=== PATIENT | female | born 1985 | race Caucasian/White ===

== ENCOUNTER 2024-11-25 08:00 | Outpatient (RCR) | payer OTHER, SELFPAY ==
--- NOTE | 2024-11-25 09:00 | BH.SGPN.GN ---
Behaviors/Verbalizations/Mental Status: [] Eye contact is good. Motor activity is appropriate. Appearance is casual. Speech is Appropriate. Mood is anxious. Affect is congruent. Thoughts are linear and logical. No evidence of psychosis. Reviewed daily check in sheet and no reports of suicidal ideations or intent. Client Response/Progress/Benefit: [] Pt participated when prompted. Attentive. This was pt?s first day in IOP. Briefly introduced herself and stated her goals are to learn more effective coping strategies. Reports high anxiety and panic attacks which are impacting her functioning. Recent psychiatric admission and is currently off work due to mental health. Group welcomed her and provided support and feedback on what to expect first day/week in [facility] which was beneficial. Will continue in [facility] to maintain safety, prevent decompensation/re-admission to [facility], and improve functioning to return to work. Narrative Note: []
--- NOTE | 2024-11-25 10:10 | BH.SGPN.GN ---
Behaviors/Verbalizations/Mental Status: []Client alert and oriented, casually dressed and groomed. Eye contact good. Motor activity appropriate. Speech within normal limits. Affect congruent, mood anxious. Thoughts linear, logical, no signs of hallucinations or delusions. Client Response/Progress/Benefit: []Pt responded well to session AEB actively participating throughout group. Pt was attentive throughout group activity discussing famous individuals and how they overcame failure to be successful. Pt helped group identify how fear of failure can impact mental health and relationships. Pt personally identified fear of failure has led to pt not trying things and getting help in the past. Participated in experiential activity, working with group members to problem solve. Appeared to benefit from increased knowledge of what causes fear of failure and how it impacts people. Will continue IOP tx to prevent decompensation, improve daily functioning and learn healthy coping skills. Narrative Note: []
--- NOTE | 2024-11-25 10:30 | BH.COMM ---
Communication Note Communication with Client Communication Note: Met with pt to complete initial paperwork and administer the CSSR-S screening and risk assessment. Pt is a moderate risk as pt denies any active SI, plan, or intent, but he has daily passive thoughts of ambivalence to living/ not caring if something happens to her. Pt denies history of suicide attempts. History of self-harm by cutting as a teenager. Denies having any weapons at home. Pt is future oriented. Pt reports ability to maintain safety today. Discussed case with Dr. Naylor and pt will be admitted to [facility] tx with a diagnosis of Major Depressive Disorder, F 33.2
--- NOTE | 2024-11-25 11:10 | BH.SGPN.GN ---
Behaviors/Verbalizations/Mental Status: []Pt alert and oriented, casually dressed and groomed. Eye contact fair. Motor activity appropriate. Speech within normal limits. Affect congruent, mood anxious and dysthymic. Thoughts linear, logical, no signs of hallucinations or delusions. Client Response/Progress/Benefit: [] Pt responded well to session, engaged in the experiential activity and attentive throughout group processing. Pt reported fear of failure has kept pt from happiness and achieving her goals. Pt completed fear of failure worksheet and was able to identify thoughts and behaviors that reinforce personal fear of failure. Pt participated in small group discussion regarding strategies to overcome fear of failure. Identified wanting to work on practicing self-compassion and identifying daily wins. ?Appeared to benefit from increased knowledge of strategies to combat fear of failure and gaining self-awareness. Pt will continue IOP tx to increase consistent use of healthy coping skills, decrease anxious avoidance, and prevent decompensation.
--- NOTE | 2024-11-25 14:30 | BH.MTP_ITS ---
Master Treatment Plan Patient Information Program Physician:: Dr. Rossi Primary Therapist:: Blanca Lind, [facility] Psychiatric Diagnoses Psychiatric Diagnoses:: 1. Major depressive disorder, recurrent, severe without psychosis 2. Panic disorder 3. Generalized anxiety disorder 4. Strong cluster B traits 5. Cannot rule out bipolar, NOS but seems more consistent with cluster B Diagnosis Code(s):: F33.2 Estimated LOS Estimated LOS (in weeks):: 6 Problem/Goal #1 Problem/Goal #1 Stated Goal:: Client will decrease depressive symptoms, low motivation, and hopelessness due to Major Depressive Disorder through Intensive Outpatient Program.? Description of Barriers: Potential barriers include: anxious thoughts, marital stress, thoughts stuck in the past, anxious avoidance, and distortions. Functional Impact: The patient is a 39-year-old , female with a history of depression and alcohol use disorder (sober x 13 months) who was who was referred to the [facility] behavioral health IOP after recent psychiatric admission at [facility] from November 11, 2024 to November 13, 2024 for suicidal ideation during an argument with her . Stressors include marital issues in which her had an affair in 2022 and there have been major trust issues and other issues since. Other stressors include her grandmother being in hospice, her father being recently diagnosed with lung cancer and her youngest daughter moving out of the house. She endorses low motivation, hopelessness, worthlessness, decreased concentration. Her sleep is decreased at 4 hours max and she does not take naps. Her energy level is usually exhausted but sometimes she gets very anxious and worried and has to do something to relieve herself. She admits to passive thoughts of but denies suicidal ideation, plan for suicide, homicidal ideation, hallucinations, delusions or symptoms of edie. Objectives Objective #1: Stated Objective: Client will learn and utilize 2-3 healthy coping strategies to manage depressive symptoms. Interventions: Therapist will utilize CBT techniques to assist client with understanding the connection between thoughts, feelings and behaviors. Education will be provided on behavioral activation. Therapist will assist client in learning internal coping strategies to manage depressive symptoms, along with helping client identify triggers. Discharge Criteria: Client will have achieved this goal when can verbalize and has practiced at least 2 healthy coping strategies that successfully manage depressive symptoms. Target Date: 01/06/25 Review Date: 12/23/24 Objective #2: Stated Objective: Client will identify and replace 2-3 negative thinking patterns that reinforce depressive symptoms. Interventions: Therapist will assist client in developing an awareness of the cognitive messages that reinforce depressive thinking. Therapist will also assist client in challenging negative thinking patterns. Discharge Criteria: Client will have achieved this goal when can identify at least 2 negative thinking patterns, replace negative thinking with more positive, affirmative messages and state no longer having thoughts of hurting self. Target Date: 01/06/25 Review Date: 12/23/24 Problem/Goal #2 Problem/Goal #2 Stated Goal:: Client will reduce overall frequency, intensity, and duration of the anxiety so that daily functioning is not impaired.? Description of Barriers: Potential barriers include: anxious thoughts, marital stress, thoughts stuck in the past, anxious avoidance, and distortions. Functional Impact: The patient is a 39-year-old , female with a history of depression and alcohol use disorder (sober x 13 months) who was who was referred to the [facility] behavioral health IOP after recent psychiatric admission at [facility] from November 11, 2024 to November 13, 2024 for suicidal ideation during an argument with her . Stressors include marital issues in which her had an affair in 2022 and there have been major trust issues and other issues since. Other stressors include her grandmother being in hospice, her father being recently diagnosed with lung cancer and her youngest daughter moving out of the house. She endorses low motivation, hopelessness, worthlessness, decreased concentration. Her sleep is decreased at 4 hours max and she does not take naps. Her energy level is usually exhausted but sometimes she gets very anxious and worried and has to do so mething to relieve herself. She admits to passive thoughts of but denies suicidal ideation, plan for suicide, homicidal ideation, hallucinations, delusions or symptoms of edie. Objectives Objective #1: Stated Objective: Client will learn and implement 2-3 calming skills to reduce overall anxiety and manage anxiety symptoms. Interventions: Therapist and group sessions will help client identify physiological warning signs of anxiety, increase awareness of thoughts that increase anxiety, and identify behaviors that reinforce anxious symptoms. Group and individual counseling will teach client calming skills to help manage anxious symptoms. Discharge Criteria: Client will have achieved this goal when can verbalize at least 2 calming skills and reports skills successfully help reduce anxious symptoms. Target Date: 01/06/25 Review Date: 12/23/24 Objective #2: Stated Objective: Client will identify 2-3 anxiety triggers and 2 coping skills to use when feeling anxious. Interventions: Therapist will encourage client to use self-awareness strategies and assist client in developing coping strategies to manage ruminating thoughts. Discharge Criteria: Client will have met this goal when can identify at least 2 triggers and 2 ways to cope with anxieties. Target Date: 01/06/25 Review Date: 12/23/24
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
--- NOTE | 2024-11-27 09:00 | BH.SGPN.GN ---
Behaviors/Verbalizations/Mental Status: [] Pt alert and oriented, neatly dressed and groomed. Eye contact good. Motor activity appropriate. Speech within normal limits. Affect congruent, mood anxious. Thoughts linear, logical, no signs of hallucinations or delusions. Reviewed pt?s symptom tracker, no risk for suicidal ideation, plan, or intent 11/27/24. Client Response/Progress/Benefit: []Pt was an active participant in group discussions. Attentive. Able to identify mental health wins including starting IOP this week and trying to utilize skills she learned in group. 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 Pt stated pt is feeling anxious this morning. Pt receptive to feedback from peers which pt reported was helpful. Limited progress. Benefited from group support, encouragement, and feedback. Will continue in IOP to prevent decompensation, increase distress tolerance skills, and improve daily functioning. Narrative Note: []
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
--- NOTE | 2024-11-27 11:10 | BH.SGPN.GN ---
Behaviors/Verbalizations/Mental Status: [] Client alert and oriented, casually dressed and groomed. Eye contact good. Motor activity appropriate. Speech within normal limits. Affect congruent, mood anxious. Thoughts linear, logical, no signs of hallucinations or delusions. Client Response/Progress/Benefit: [] Client engaged in session AEB contributing to discussion and engaging in small group. Attentive during discussion on strategies for more effectively managing conflict in personal life. Client participated in small group for activity and did well practicing how to manage conflict scenarios. Client given handout on DEAR [employer] with strategies to to communicate effectively in conflict. Client indicated what needs improvement in conflict for them. Appeared to benefit from gaining strategies to help client better manage conflict. Will continue IOP tx to improve view of self, improve focus on what's within her control, and prevent decompensation.
[2024-11-27 11:35] VITALS: BP 149/99; PULSE 79
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
--- NOTE | 2024-11-27 13:04 | BH.DR.ITP ---
Initial Treatment Plan Patient Information Visit Information: ADMISSION DATE: EXPECTED LOS: 4-6 weeks Problems/Symptoms Problem #1:: Depression Symptom:: Sadness, hopelessness, biological disruption of sleep, low motivation, erratic energy, decreased concentration, passive thoughts of Problem #2:: Anxiety Symptom:: Rumination, avoidance, panic attacks, nightmares, exaggerated startle and fear since psychiatric admission
--- NOTE | 2024-11-29 09:05 | BH.SGPN.GN ---
Behaviors/Verbalizations/Mental Status: []? Eye contact is good. Motor activity is appropriate. Appearance is casual. Speech is Appropriate. Mood is depressed and anxious. Affect is congruent. Thoughts are linear and logical. No evidence of psychosis. Reviewed daily check in sheet and no reports of suicidal ideations or intent.? Client Response/Progress/Benefit: []? Pt was an active participant in group discussion. Attentive. Shared with the group mental health wins including, setting a boundary with her [id number], as well as getting to group today. Noted that sitting on her couch is a goal for working on her mental health related to her marriage. Reports this is a stressor. Pt denies SI plan or intent. Recommended continued IOP tx to improve mood ans stability Narrative Note: []Behaviors/Verbalizations/Mental Status: []? Eye contact is good. Motor activity is appropriate. Appearance is casual. Speech is Appropriate. Mood is depressed and anxious. Affect is congruent. Thoughts are linear and logical. No evidence of psychosis. Reviewed daily check in sheet and no reports of suicidal ideations or intent.? Client Response/Progress/Benefit: []? Pt was an active participant in group discussion. Attentive. Shared with the group [employer] health wins including, setting a boundary with her [id number], as well as getting to group today. Noted that sitting on her couch is a goal for working on her mental health related to her marriage. Reports this is a stressor. Pt denies SI plan or intent. Recommended continued IOP tx to improve mood ans stability Narrative Note: []
--- NOTE | 2024-11-29 10:10 | BH.SGPN.GN ---
Behaviors/Verbalizations/Mental Status: [] Pt alert and oriented, casually dressed and groomed. Eye contact good. Motor activity appropriate. Speech within normal limits. Affect congruent, mood content,Thoughts linear, logical, no signs of hallucinations or delusions. Client Response/Progress/Benefit: [] Pt receptive to session AEB contributing to group discussion, as well as listening attentively to others, and taking notes. Worked with group to brainstorm the positive and negative aspects of stress on physical and mental health as well as the impact of distress on performance, relationships, and mental health. Pt shared their top stressors to be: daughter, 's affair, dad, and fear of judgement. Shared when feeling overwhelmed with stress pt will be a mess by having increased irritability and anxiety. Benefited from increased awareness of positive and negative stress as well as how stress impact individuals. Will continue in IOP to increase consistent use of healthy coping skills, challenge distorted/negative thoughts, and prevent decompensation. Narrative Note: []
--- NOTE | 2024-11-29 11:10 | BH.SGPN.GN ---
Behaviors/Verbalizations/Mental Status: [] Pt alert and oriented, casually dressed and groomed. Eye contact good. Motor activity appropriate. Speech within normal limits. Affect congruent, mood content, Thoughts linear, logical, no signs of hallucinations or delusions. Client Response/Progress/Benefit: [] Pt was an attentive participant in group discussions and actively engaged during experiential activity, doing well to regulate their emotions throughout the activity and work with peers. Attentive during psychoeducation on the 4 A's (Avoid, adapt, alter, accept) of coping with stress. Client indicated she was going to fill out the 4 A's over the weekend due to wanting to put extra time into it. Was able to identify the connection between the experiential activity and utilization of stress management skills. Benefited from increased awareness of stress management strategies. Pt will continue IOP to increase consistent use of healthy coping skills, challenge negative thoughts, and prevent decompensation. Narrative Note: []
--- NOTE | 2024-12-02 09:05 | BH.SGPN.GN ---
Behaviors/Verbalizations/Mental Status: [] Eye contact is good. Motor activity is appropriate. Appearance is casual. Speech is Appropriate. Mood is depressed/anxious. Affect is congruent. Thoughts are linear and logical. No evidence of psychosis. Reviewed daily check in sheet and no reports of suicidal ideations or intent. Client Response/Progress/Benefit: [] Pt participated at times during the group discussion. Reports being ?really anxious? and irritable over the weekend which she attributes to a medication change. She stopped the medication herself. Discussed several panic attacks and is struggling to find ways to work through them without impact her functioning. Limited progress noted. Benefited form group support, encouragement, and feedback. Will continue in IOP to prevent decompensation/re-admission to psych unit, stabilize anxiety, and improve functioning to return to work. Narrative Note: []
--- NOTE | 2024-12-02 10:15 | BH.SGPN.GN ---
Behaviors/Verbalizations/Mental Status: []Client alert and oriented, casually dressed and groomed. Eye contact good. Motor activity appropriate. Speech within normal limits. Affect congruent, mood engaged and anxious. Thoughts linear, logical, no signs of hallucinations or delusions. Client Response/Progress/Benefit: [] Pt was an active participant AEB contributing to discussion, taking notes, and engaging in group activity. Connected with the topic of pitfalls and listened to group discussion on barriers that prevent from choosing a healthier path to mental wellness. Group worked together to identify examples of personal pitfalls. These examples included; shutting down, not asking for help, lack of self-care, negative thinking patterns, and using substances. Pt benefited from group as Pt learned to better identify potential barriers to improving mental health symptoms. Pt will continue IOP tx to improve mood stability, reduce negative thinking patterns, and improve daily functioning. Narrative Note: []
--- NOTE | 2024-12-02 11:15 | BH.SGPN.GN ---
Behaviors/Verbalizations/Mental Status: []Client alert and oriented, casually dressed and groomed. Eye contact good. Motor activity appropriate. Speech within normal limits. Affect congruent, mood anxious. Thoughts linear, logical, no signs of hallucinations or delusions. Client Response/Progress/Benefit: [] Pt receptive of session, engaged throughout AEB Pt actively listening and contributing to discussion as well as taking notes.? Pt participated in the experiential activity and did well to communicate ideas with peers and manage emotions. Pt attentive as group processed how the emotions and perspective of the group impacted the activity. Group worked together to identify different coping skills to help manage pitfalls. Pt identified a pitfall they struggle with as ?running from stressors? . Pt plans to work on their pitfall by taking breaths and taking a step back, but reminding herself to return to the stressor afterwards. Benefited from identifying personal pitfalls and strategies to overcome these pitfalls. Pt will continue IOP tx to prevent decompensation, improve daily functioning, and gain skills to manage distress. Narrative Note: []
--- NOTE | 2024-12-05 09:02 | BH.SGPN.GN ---
Behaviors/Verbalizations/Mental Status: []Pt alert and oriented, casually dressed and groomed. Eye contact good. Motor activity appropriate. Speech within normal limits. Affect congruent, mood depressed and anxious. Thoughts linear, logical, no signs of hallucinations or delusions. Reviewed pt?s symptom tracker, no risk for suicidal ideation, plan, or intent 12/05/24 Client Response/Progress/Benefit: []Pt was an active participant in group discussions. Attentive. Able to identify mental health wins including being informed recently that her father is officially in remission for his cancer. Noted this was a huge stress relief. Additional win noted as challenging herself to stop into her place of employment to challenge her anxiety about doing so. Noted that her co-workers were much more supportive than she had anticipated which had been a relief as well. Stressor noted as continuing to struggle with attaching a lot of emotion to objects and explained that this is impeding her ability to move past previous negative experiences. Benefited from group support, encouragement, and feedback. Will continue in IOP to prevent decompensation, continue to gain healthy coping skills, and reduce negative thinking patterns. Narrative Note: []
--- NOTE | 2024-12-05 10:15 | BH.SGPN.GN ---
Behaviors/Verbalizations/Mental Status: []Eye contact is good. Motor activity is appropriate. Appearance is casual. Speech is Appropriate. Mood is anxious and depressed. Affect is congruent. Thoughts are linear and logical. No evidence of psychosis Client Response/Progress/Benefit: [] Pt engaged in session AEB listening attentively to others and providing input throughout. Pt engaged in activity, able to connect how it can be uncomfortable and difficult to accept when things are out of one?s own control. Worked with peer group to identify things in life which are hard to accept and identified personal things that are hard to accept including her ?s infidelity and her daughter?s behaviors. Seemed to benefit from increased awareness of the meaning as well as the importance of acceptance. Pt also worked on what acceptance is vs is not for own personal example. Will continue in IOP to prevent decompensation, gain healthy coping skills, and reduce negative thinking patterns. Narrative Note: []
--- NOTE | 2024-12-05 11:10 | BH.SGPN.GN ---
Behaviors/Verbalizations/Mental Status: [] Pt alert and oriented, casually dressed and groomed. Eye contact fair. Motor activity is appropriate. Speech within normal limits. Affect congruent, mood depressed. Thoughts linear, logical, no signs of hallucinations or delusions. Client Response/Progress/Benefit: [] Pt was attentive and engaged participating in discussion on acceptance and the mental health benefits of practicing acceptance. Pt and peers identified what makes acceptance challenging and pt completed a self-reflection exercise on what is hard to accept in pt's life. Pt identified things that are hard to accept for her. Pt identified an acceptance skill of acceptance is not approval to practice Pt appeared to benefit from gaining insight and learning strategies to increase acceptance. Will continue in IOP to maintain safety, prevent decompensation/re-admission to psych, improve functioning to return to work, and increase healthy coping. Narrative Note: []
--- NOTE | 2024-12-06 09:05 | BH.SGPN.GN ---
Behaviors/Verbalizations/Mental Status: [] Eye contact is good. Motor activity is appropriate. Appearance is casual. Speech is Appropriate. Mood is depressed. Affect is flat. Thoughts are linear and logical. No evidence of psychosis. Reviewed daily check in sheet and pt reports 2/5 for SI/passive thoughts of and 0/5 for intent. Client Response/Progress/Benefit: [] Pt participated at times during the group discussion. Attentive. Shred that due to her depression it was difficult to make it to group today. It was pretty rough this morning however she did not elaborate. Reports increased anger and sadness. Also reports nightmares which started this month and appear to be related to events that occurred during her recent psychiatric admission. Nightmare are impacting her ability to sleep. According to patient her medication help her fall asleep however she wakes up and is unable to fall back asleep due to nightmares. No progress noted. Benefited from group support, encouragement, and feedback. Will continue in IOP to maintain safety, stabilize mood, prevent decompensation/re-admission, and improve functioning to return to work. Narrative Note: []
--- NOTE | 2024-12-06 10:10 | BH.SGPN.GN ---
Behaviors/Verbalizations/Mental Status: [] Eye contact is good. Motor activity is appropriate. Appearance is casual. Speech is Appropriate. Mood is anxious. Affect is congruent. Thoughts are linear and logical. No evidence of psychosis. Client Response/Progress/Benefit: [] Pt receptive of session, actively engaged throughout AEB taking notes, providing input, and contributing in small group discussion. Appeared to connect with group topic of automatic thoughts and cognitive distortions, as well as the impact of thought patterns on mental health, coping behaviors, and relationships. This particular group is very heavy on psychoeducation and pt appeared to connect with distortions and how they can impact functioning. Identified top distortions she struggles with are overgeneralization and mental filter. Pt appeared to benefit from gaining insight on distorted thinking patterns and how this impacts overall mental health. Will continue IOP to increase use of healthy coping skills, challenge distortions, and prevent decompensation.
--- NOTE | 2024-12-06 11:15 | BH.SGPN.GN ---
Behaviors/Verbalizations/Mental Status: []Pt alert and oriented, casually dressed and groomed. Eye contact fair. Motor activity appropriate. Speech within normal limits. Affect constricted, mood depressed and anxious. Thoughts linear, logical, no signs of hallucinations or delusions Client Response/Progress/Benefit: [] Pt was an active participant during group discussion. Pt was placed in a smaller group and participated in combatting example distortions with peers. Pt was engaged in the smaller group, participated in group interactions to brainstorm answers, and appeared to be comprehending cognitive distortions. Attentive and appeared to connect with psychoeducation about different strategies to reframe/challenge distortions. Identified wanting to use a thought log to better challenge personal distorted thoughts. Benefited from gaining further insight and awareness of cognitive distortions as well as practicing ways to reframe and challenge thoughts. Will continue in IOP to improve daily functioning, increase healthy coping, and prevent decompensation. Narrative Note: []
--- NOTE | 2024-12-06 13:52 | BH.MDN ---
Multi-Disciplinary Note Note 45-min Individual: Time Started:: 12:05 Date: 12/06/24 Purpose of session/treatment goals addressed:: Purpose of session was to address goals 1 and 2 from [facility]TP. Eye Contact:: Fair Motor Activity:: Restless Appearance:: Casual Speech:: Appropriate Mood:: Anxious Affect:: Congruent Thoughts:: Linear, Logical and No evidence of hallucinations/delusions noted Staff Interventions:: psychoeducation on: (anxiety avoidance), CBT techniques, mindfulness skills, rapport building, strengths perspective, goal setting and taught coping skills (exposure techniques) Client Response:: Client reported still feeling like her emotions are on a roller coaster. Client stated since stopping the Abilify earlier this week she has noticed not feeling as agitated and on edge as she was after first taking it. Client reported feeling somewhat frustrated that Abilify did not work because now she has to try different medication. Client stated continued stress at home with feeling triggered by everything which results in her feeling on edge and can lead to arguments with her . Client reported she had an argument with her this morning and he made a comment I deserve better than you. Client stated she is experiencing increasing negative thoughts and not feeling like she is good enough. Client reported she struggled for some time throughout her life with low self-worth and low confidence. Client agreed she believes it would be beneficial to focus on building her confidence and worth. Client agreed she struggles with being kind to herself and is quick to think others are judging her. Client agreeable to start keeping a accomplishment journal or wins log and that she will identify 2-3 positives every day. Client stated she also has been struggling with attaching intense emotions to objects. Client shared she has not sit on one of her couches in 14 months because it is the couch that she was sitting on when her told her about his affair. Client said every time she sees this sectional she gets triggered into feeling anger and rage. Client connected with education about the importance of desensitizing the brain through some small exposure goals because cannot avoid every trigger. Therapist explained the idea of slowly exposing herself to the couch by sitting on it for about 5 minutes before she lets herself get up off the couch. Discussed skills and strategies that might help her manage her emotions in the moment. Client agreed it would be helpful for her to start working through some of these triggers because she is finding that the avoidance continues to make her world smaller and smaller. Reviewed distress tolerance skills discussed potentially using her kickboxing material because she has recently been struggling with anger that has led her to punch her wall several times. Therapist encouraged client when she notices her anger response to try grounding techniques like using her's sense of smell with a calming candle or feeling some sort of texture to bring her self back to the here and now. Client stated she has tried that and has found it useful but recognizes she needs to use this more consistently. Risks/Concerns:: Denies suicidal ideation, plan, and intention. Future oriented. Progress Toward Goals/Plan:: Progress variable. Client did not respond well to the Abilify that was added last week which resulted in increased agitation and anger. Client stopped taking the medication on Monday and is started to recently notice a little bit less agitation. Client stated she still is experiencing roller coaster of emotions every day. Client stated there are moments in which she does feel okay but sometimes a small statement or comment or visual trigger can result in her feeling extreme agitation and anger. Client stated sometimes a triggers remind her of her 's affair and other times it is just triggers to previous negative experiences. Client noted some increase in negative thought patterns and decrease self worth. Plan is for client to continue IOP to improve self worth, improve utilization of healthy coping skills, and prevent decompensation. Time Stopped:: 12:50
--- NOTE | 2024-12-09 09:05 | BH.SGPN.GN ---
Behaviors/Verbalizations/Mental Status: [] Eye contact is good. Motor activity is appropriate. Appearance is casual. Speech is Appropriate. Mood is depressed. Affect is congruent. Thoughts are linear and logical. No evidence of psychosis. Reviewed daily check in sheet and pt reports 3/5 for passive thoughts of and 0/5 for intent. Client Response/Progress/Benefit: [] Pt participated at times during the group discussions. Attentive. Daily symptom tracker notes 4/5 for anxiety and panic. Shared the she completed goals to work on exposure therapy this weekend. She did not elaborate on specifics however stated that while it was uncomfortable and overwhelming she was able to make it through Brief group discussion on the benefits of exposure goals. She attended a social event yesterday despite feeling of anxiety and panic. Able to use skills rather than avoid. Reports feeling depressed today stating just feeling like I'm not worth it. Sleep continues to impact her mental health. Reports nightmares. Limited progress noted. Benefited from group support, encouragement, and feedback. Will continue in IOP to prevent decompensation/re-admission to psych unit, improve daily functioning to return to work, and stabilize mood. Narrative Note: []
--- NOTE | 2024-12-09 10:10 | BH.SGPN.GN ---
Behaviors/Verbalizations/Mental Status: []Client alert and oriented, casually dressed and groomed. Eye contact good. Motor activity appropriate. Speech within normal limits. Affect congruent, mood anxious and depressed. Thoughts linear, logical, no signs of hallucinations or delusions. Client Response/Progress/Benefit: [] Pt was an attentive and active participant, AEB taking notes and providing input in group discussion. Attentive during psychoeducation. Pt engaged during interactive discussion in which the group defined self-care and discussed its benefits. Group discussed barriers to engaging in self-care. Group members together came up with guilt, time, ?people pleasing?, not knowing what to do, and perception that its unproductive as barriers to engage in self-care. Pt identified personal barrier as lack of time and not feeling she deserves it. Pt participated in small groups where they worked to identify and challenged common self-care ?myths?. Benefited from increased awareness of self-care, its benefits, and the consequences of not utilizing self-care strategies. Will continue IOP tx to improve mood stability and self-esteem, promote use of healthy coping skills, and prevent decompensation. Narrative Note: []
--- NOTE | 2024-12-09 11:10 | BH.SGPN.GN ---
Behaviors/Verbalizations/Mental Status: []Client alert and oriented, casually dressed and groomed. Eye contact good. Motor activity appropriate. Speech within normal limits. Affect congruent, mood content. Thoughts linear, logical, no signs of hallucinations or delusions. Client Response/Progress/Benefit: [] Pt taking notes during discussion reviewing different areas of self-care and completing self-assessment of current self-care, as well as providing input throughout discussion. Did well to complete self-care self-assessment worksheet. Pt identified how pt is doing in each category and what self-care activities pt wants to start using. Pt selected emotional self-care to begin practicing more consistently. Pt plans to do this by paying more attention to her warning signs and identifying her triggers. Appeared to benefit from completing the self-care evaluation and gaining insights into current self-care practices, as well as identifying areas in which pt would like to improve upon. Pt will continue IOP tx to promote use of healthy coping skills, reduce negative thinking patterns, and increase self-confidence. Narrative Note: []
--- NOTE | 2024-12-09 11:20 | BH.COMM ---
Communication Note Communication with Client Communication Note: Met with pt briefly. After reviewing pt's daily symptom tracker she reported a 2/5 for suicidal thoughts and 0/5 for intent. She states that she is not actively suicidal and reports passive thoughts of similar to others would be better off without me. Adamantly denies any active SI, plan, or intent. I'm not going to do anything. Future-oriented as she discussed upcoming goals, marriage counseling, and was able to see her progress in therapy in the last couple months. Does not present as imminent risk to herself as thoughts are passive and more attributed to survival ambivalence. She is aware of crisis numbers and encouraged ER if symptoms worsen.
--- NOTE | 2024-12-11 09:00 | BH.SGPN.GN ---
Behaviors/Verbalizations/Mental Status: [] Client alert and oriented, casual appearance. Eye contact fair. Motor activity appropriate. Speech within normal limits. Affect congruent, mood anxious. Thoughts linear, logical, no signs of hallucinations or delusions. Reviewed client's symptom tracker, no risk for suicidal ideation, plan, or intent. Client Response/Progress/Benefit: []Client responded well to session AEB listening to others and sharing thoughts/feelings. Client reported mental health positive as doing a anxious exposure goal. Client reported although she was anxious she was able to do the exposure two times. Client stated she found it to be easier the second time. Client reported additional positive as going to the dentist to fix her tooth which is something she's been putting off. Client stated feeling anxious about her current relationship situation. Appeared to benefit from support from peers. Will continue IOP tx to increase healthy coping skills, continue working on anxious exposure goals, and prevent decompensation.
--- NOTE | 2024-12-11 10:15 | BH.SGPN.GN ---
Behaviors/Verbalizations/Mental Status: []Pt alert and oriented, neatly dressed and groomed. Eye contact good. Motor activity appropriate. Speech within normal limits. Affect congruent, mood euthymic. Thoughts linear, logical, no signs of hallucinations or delusions. Client Response/Progress/Benefit: [] Pt was attentive during psychoeducation and participated in group activity. Group discussed what contributes to a person?s perspective and how perspective can positively or negatively impact mental health treatment. Pt reflected on their perspective today and how it is impacting them. Pt shared her perspective is mostly more negative currently, but ?I have moments of positive? but pt noted having a negative perspective keeps her stuck and irritated. Pt appeared to benefit from increasing awareness of different perspectives and how they can affect mental health. Pt will continue IOP tx to improve confidence, challenge negative thoughts, and prevent decompensation. Narrative Note: []
--- NOTE | 2024-12-11 11:15 | BH.SGPN.GN ---
Behaviors/Verbalizations/Mental Status: []Pt alert and oriented, casually dressed and groomed. Eye contact good. Motor activity appropriate. Speech within normal limits. Affect congruent, mood depressed and anxious. Thoughts linear, logical, no signs of hallucinations or delusions. Client Response/Progress/Benefit: []Pt was attentive and contributed to group discussion. Pt worked with group to identify strategies that can help with challenging negative perspective. Pt stated she can remind self to use self-compassionate statements as a way to challenge negative perspective. Pt completed strengths exploration worksheet, identifying personal strengths. Pt able to acknowledge how these strengths are helping pt and can continue to help pt in mental health journey. Pt identified wanting to work on leaning on strength of love and persistence. Benefited from identifying personal strengths and strategies for enhancing use of identified strengths. Pt will continue IOP tx to continue to improve functioning and mood stability, promote self-compassion, and prevent decompensation. Narrative Note: []
--- NOTE | 2024-12-11 11:51 | PCM.BH.PN_ITS ---
Progress Note Progress Note: History of Present Illness/Interim History: The patient is a 39-year-old female with a history of depression and alcohol use disorder (sober x 13 months) who is seen in follow-up at the [facility] behavioral health IOP. The patient was admitted at [facility] and discharged November 13, 2024 for suicidal ideation during an argument with her . At last visit Abilify was added but the patient discontinued it after 1 week because she states it made her more irritable, anxious and restless. the increase trazodone has helped her sleep but she is still waking up at times with severe nightmares where she is soaked with sweat when she wakes up and these nightmares are about her recent psychiatric admit which has given her significant nightmares and other symptoms. The patient denies using alcohol. She is having panic attacks but every other day or sometimes daily and has started taking the Klonopin twice daily as prescribed. Current Psychiatric Medications: [] Lexapro 20 mg p.o. daily; trazodone 100 mg grams to 200 mg p.o. nightly; BuSpar 20 mg p.o. 3 times a day; Klonopin 0.5 mg p.o. twice daily. Abilify 2 mg was taken only for 1 week due to side effects and was discontinued. Mental Status Examination: [] The patient is a 39-year-old female who appears normal or slightly younger than stated age and is slender and wearing glasses with 1 piercing near her lip. She is ambulatory with a normal gait and has no psychomotor agitation or retardation. She is cooperative and pleasant during the interview. Speech is normal rate and rhythm and fluent with no pressure. Eye contact is good. Mood is anxious and depressed. Affect is mildly constricted. Thought process is goal-directed and organized. Thought content: There is evidence of occasional passive thoughts of and emotional dysregulation. The patient feels that people supervisor finish end her and she is not good enough for her . There is no evidence of suicidal ideation, homicidal ideation, plan for suicide, hallucinations suicidal ideation, homicidal ideation, plan for suicide, hallucinations or delusions. Reality testing is intact. Intelligence is above average. Judgment is intact. Insight is limited but improving. Impulsivity is high. Diagnoses: [] 1. Major depressive disorder, recurrent, severe without psychosis 2. Panic disorder 3. Generalized anxiety disorder 4. Acute stress disorder possibly leading to PTSD 5. Strong cluster B traits 6. Primary support issues Plan: [] The patient will continue the IOP and behavioral health as the structure, support, education and group therapy will hopefully prevent worsening of the patient's symptoms which could require rehospitalization. She felt safe during the interview and if it anytime she does not feel safe she agrees to let us know or go to the emergency room. The right, options, possible complications and side effects of the medications were discussed with the patient again and she understands accepts these. Patient agrees to try resulting 0.5 mg p.o. daily. Will add prazosin 1 mg p.o. nightly to help with nightmares. She will stay sober from all alcohol and she will continue to follow-up with her outpatient providers and I will see the patient in follow-up in 2 weeks.
--- NOTE | 2024-12-11 15:56 | BH.MDN ---
Multi-Disciplinary Note Note 45-min Individual: Time Started:: 12:05 Date: 12/11/24 Time Stopped:: 12:45
--- NOTE | 2024-12-13 09:05 | BH.SGPN.GN ---
Behaviors/Verbalizations/Mental Status: [] Eye contact is good. Motor activity is appropriate. Appearance is casual. Speech is Appropriate. Mood is dysthymic. Affect is congruent. Thoughts are linear and logical. No evidence of psychosis. Reviewed daily check in sheet and pt reports 1/5 for passive thoughts of and 0/5 for intent. Client Response/Progress/Benefit: [] Pt participated at times during the group discussion. Attentive. Daily symptom tracker notes 4/5 for anxiety and 3/5 for depression. Shared with the group that she started taking a new medication for her nightmares. Admits to hx of anxiety related to side effects which often causes her to google her medications. Proud of herself for resisting the urge to google the medications as she is fearful her anxiety may elicit side effects. She also practiced opposite-action yesterday in which she forced herself out of bed and put on a dress. She explained how the act of putting on a dress helped reframe her thoughts, decrease isolation, and increase motivation. Discussion was had on behavior activation on how movement can cause motivation. SHe continues to reports struggles with daily functioning with anxiety, depression, trust issues, and lack of self-worth. Hopeful that her new medication with decrease nightmares and help her sleep. Progress noted. Benefited from group support, encouragement, and feedback. Will continue in IOP to maitnain safety, prevent decompensation/re-admission to psych unit, and improve functioning to return to work. Narrative Note: []
--- NOTE | 2024-12-13 10:05 | BH.SGPN.GN ---
Behaviors/Verbalizations/Mental Status: [] Eye contact is good. Motor activity is appropriate. Appearance is casual. Speech is Appropriate. Mood is depressed. Affect is congruent. Thoughts are linear and logical. No evidence of psychosis. Client Response/Progress/Benefit: [] Pt engaged participant AEB listening to others, engaging in activity, and providing feedback throughout. Attentive during psychoeducation and provided insight into obstacles that impede mental wellness. Pt chose shared with group current mental health reality and desired mental health reality, noting she would like to feel closer within relationships and more self-compassionate. Attentive to others that shared. Identified barriers to desired reality include: lack of trust and communication, self-criticism, fear of rejection and being unloveable. Benefited from taking look at current mental health state and obstacles for progress. Pt to continue IOP tx to improve confidence, challenge negative self-talk, and prevent decompensation. Narrative Note: []
--- NOTE | 2024-12-13 11:05 | BH.SGPN.GN ---
Behaviors/Verbalizations/Mental Status: [] Eye contact is good. Motor activity is appropriate. Appearance is casual. Speech is Appropriate. Mood is dysthymic and anxious. Affect is congruent. Thoughts are linear and logical. No evidence of psychosis Client Response/Progress/Benefit: [] Pt was engaged at times during group discussions and was attentive during group activity. Worked with peers to identify strategies to help overcome barriers and obstacles to desired reality. Group worked together to develop strategies for the common barriers. Identified personal barriers to desired reality and chose one obstacle to work. Pt stated pt wants to work on fear of not being enough and identified a strategy to redefine what enough is and have self-compassion. Pt seemed to benefit from increased knowledge of practical strategies to overcome common barriers to moving forward. Will continue in IOP to prevent decompensation/ re-admission to psych unit, stabilize mood, maintain safety, and improve functioning to return to work. Narrative Note: []
== END 2024-12-13 23:59 ==
LOC: BHIOP 08:00
PROVIDERS: PCP Nurse Practitioner Family; Referring Provider Psychiatry & Neurology Psychiatry; Visit Provider Psychiatry & Neurology Psychiatry
DX: F33.1 Major depressive disorder, recurrent, moderate (principal); F41.0 Panic disorder [episodic paroxysmal anxiety]; F41.1 Generalized anxiety disorder; Z73.3 Stress, not elsewhere classified; F10.91 Alcohol use, unspecified, in remission; Z79.899 Other long term (current) drug therapy
CPT/HCPCS: S9480; 90834; 90853

== ENCOUNTER 2024-12-16 07:16 | Outpatient (RCR) | payer OTHER, SELFPAY ==
[2024-12-14 02:39] VITALS: BP 149/99; PULSE 79
--- NOTE | 2024-12-16 09:00 | BH.SGPN.GN ---
Behaviors/Verbalizations/Mental Status: [] Client alert and oriented, casual appearance. Eye contact good. Motor activity appropriate. Speech within normal limits. Affect congruent, mood euthymic. Thoughts linear, logical, no signs of hallucinations or delusions. Reviewed client's symptom tracker, no risk for suicidal ideation, plan, or intent. Client Response/Progress/Benefit: [] Client responded well to session AEB listening to others and sharing thoughts/feelings. Per daily symptom tracker client reports a 1/5, with 5 being severe, for depressed mood and a 2/5 for anxiety. Client reported she overall had a good weekend. Client stated she attended a orthodoxy group yesterday and although she was anxious to go after attending she was really glad she pushed through her anxiety. Client stated her anxiety started to decrease towards the middle of the group last night and noted feeling appreciative of being around supportive people. Client reported she is hopeful that the new medication she just started is working because she had 2 nights in a row of having no nightmares. Client reported additional mental positive as going grocery shopping early in the morning which helped decrease her anxiety instead of waiting to go after orthodoxy when the grocery store is packed. Client stated her current stressor is feeling slightly anxious that eventually this Feeling is going to just go away. Appeared to benefit from support from peers. Will continue IOP tx to continue to consistently work on her exposure goals, improve daily functioning, and prevent decompensation. Narrative Note: []
--- NOTE | 2024-12-16 10:10 | BH.SGPN.GN ---
Behaviors/Verbalizations/Mental Status: [] Eye contact is good. Motor activity is appropriate. Appearance is casual. Speech is Appropriate. Mood is depressed. Affect is congruent. Thoughts are linear and logical. No evidence of psychosis. Client Response/Progress/Benefit: [] Pt participated at times during group discussion. Engaged in group activity and attentive during psychoeducation. Along with peers, pt was able to identify barriers to taking action in their life. Identified several symptoms and stressors that pt feels are holding them back from progress such as fear of judgement and lack of self-confidence. Stated these things have kept pt from feeling comfortable in to try new things. Benefited from increased self-awareness of obstacles. Will continue IOP tx to prevent decompensation/re-admission to psych, maintain safety, further stabilize mood, and improve functioning to return to work.
--- NOTE | 2024-12-16 11:15 | BH.SGPN.GN ---
Behaviors/Verbalizations/Mental Status: []Pt alert and oriented, casually dressed and groomed. Eye contact good. Motor activity appropriate. Speech within normal limits. Affect congruent, mood anxious and dysthymic. Thoughts linear, logical, no signs of hallucinations or delusions. Client Response/Progress/Benefit: [] Pt responded well to session, taking notes and participating in worksheet discussion. Pt connected with the discussion on motion vs action steps, and this helped pt learn how to set goals differently. Pt set a goal to work on improving self-confidence. Pt identified motion steps including identifying who her healthy supports are, create a self-care daily plan, and redefine what ?realistic expectations? look like. Pt stated what will help take action is hanging up a post it note to remember self-care, communicate with supports, and ?do it?. Appeared to benefit from identifying a small goal to benefit mental health. Pt is to continue IOP tx to promote use of healthy coping skills, challenge distortions, and prevent decompensation. Narrative Note: []
--- NOTE | 2024-12-18 09:00 | BH.SGPN.GN ---
Behaviors/Verbalizations/Mental Status: []? Eye contact is good. Motor activity is appropriate. Appearance is casual. Speech is Appropriate. Mood is anxious. Affect is congruent. Thoughts are linear and logical. No evidence of psychosis. Reviewed daily check in sheet and no reports of suicidal ideations or intent? Client Response/Progress/Benefit: []? Pt engaged throughout, providing supportive feedback. Did well to identify mental health wins, which included challenging herself to engage inher exposure goal for 7 minutes rather than 5. Reports feeling proud of herself in doing so. Additional win noted as challenging herself to get out of the house and walk around a few stores. Reports that she felt better being active and out of the house. Stressor noted as being sore due to falling down yesterday. Progress noted. Benefited from group support and encouragement. Recommended continued IOP tx to maintain mood stability, increase confidence, and prevent decompensation. Narrative Note: []Behaviors/Verbalizations/Mental Status: []? Eye contact is good. Motor activity is appropriate. Appearance is casual. Speech is Appropriate. Mood is anxious. Affect is congruent. Thoughts are linear and logical. No evidence of psychosis. Reviewed daily check in sheet and no reports of suicidal ideations or intent? Client Response/Progress/Benefit: []? Pt engaged throughout, providing supportive feedback. Did well to identify mental health wins, which included challenging herself to engage inher exposure goal for 7 minutes rather than 5. Reports feeling proud of herself in doing so. Additional win noted as challenging herself to get out of the house and walk around a few stores. Reports that she felt better being active and out of the house. Stressor noted as being sore due to falling down yesterday. Progress noted. Benefited from group support and encouragement. Recommended continued IOP tx to maintain mood stability, increase confidence, and prevent decompensation. Narrative Note: []
--- NOTE | 2024-12-18 10:10 | BH.SGPN.GN ---
Behaviors/Verbalizations/Mental Status: []Eye contact is good. Motor activity is appropriate. Appearance is casual. Speech is Appropriate. Mood is calm. Affect is congruent. Thoughts are linear and logical. No evidence of psychosis. Client Response/Progress/Benefit: []Pt was an active participant in group discussion. Engaged and attentive during psychoeducation and interactive discussion on coping skills, why people use unhealthy coping skills, how to replace unhealthy coping skills, and internal vs external coping skills. Attentive as peers came up with list of unhealthy coping skills. Pt reported personally, she tends to ignore when she needs helps and push through which leads to more problems. Group discussed the effects of maladaptive coping skills on mental health. Benefited from increased understanding of unhealthy coping skills and the need for developing healthy internal and external coping skills. Actively participated during experiential group activity and was able to related this activity to group topic. Will continue in IOP to reduce negative thinking patterns, gain healthy coping skills, and improve functioning. Narrative Note: []
--- NOTE | 2024-12-18 11:10 | BH.SGPN.GN ---
Behaviors/Verbalizations/Mental Status: []Pt alert and oriented, casual in appearance. Eye contact good. Motor activity appropriate. Speech within normal limits. Affect congruent, mood euthymic. Thoughts linear, logical, no signs of hallucinations or delusions. Client Response/Progress/Benefit: [] Pt engaged participant AEB provided contributions during discussion, taking notes, and listening attentively to others. Engaged in the provided activity. Group discussed the different categories of coping skills which included distraction, emotional release, grounding, self-love, and thought challenging. Pt participated in creating a coping skills ?menu? from the different categories of coping skills. Pt's coping skill menu included: being creative, breathing skills, talking to support, setting boundaries, and reminding self a thought is a thought not a fact. Appeared to benefit from increasing repertoire of healthy coping skills. Will continue IOP to promote healthy coping, challenge distortions, and prevent decompensation.
--- NOTE | 2024-12-18 14:04 | BH.TPR ---
Treatment Plan Review Demographics Date of Admission:: 11/25/24 Date of Treatment Plan Review:: 12/18/24
--- NOTE | 2024-12-20 09:00 | BH.SGPN.GN ---
Behaviors/Verbalizations/Mental Status: [] Eye contact is good. Motor activity is appropriate. Appearance is casual. Speech is Appropriate. Mood is euthymic. Affect is full. Thoughts are linear and logical. No evidence of psychosis. Reviewed daily check in sheet and no reports of suicidal ideations or intent Client Response/Progress/Benefit: [] Pt participated when prompted. Attentive. Daily symptom tracker notes 4/5 for anxiety and agitation.Tearful at times during her check-in. Sahred with the group being emotional this AM due to hurtful words that her daughter recently told her. Narrative Note: []
--- NOTE | 2024-12-20 10:15 | BH.SGPN.GN ---
Behaviors/Verbalizations/Mental Status: [] Eye contact is good. Motor activity is appropriate. Appearance is casual. Speech is Appropriate. Mood is depressed. Affect is congruent. Thoughts are linear and logical. No evidence of psychosis Client Response/Progress/Benefit: [] Pt receptive to session AEB listening attentively to others and taking notes. Pt attentive throughout psychoeducation on the cognitive triangle and maintenance cycles. Pt attentive and engaged during small group discussion reviewing the impact of daily activities and behaviors in either reinforcing unhealthy maintenance cycles and depression or assisting in reducing symptoms (?down? vs ?up? activities). Pt identified common up activities (baking, boxing, eating healthy, intimacy, grounding getting dressed up) and down activities (staying in bed, doom reading, over-planning, unrealistic goals, toxic people). Appeared to benefit from increased awareness of current behaviors and impact these have on mental health. Will continue IOP to prevent decompensation/re-admission to psych, maintain safety, increase healthy coping, and improve functioning to return to work. Narrative Note: []
--- NOTE | 2024-12-20 11:10 | BH.SGPN.GN ---
Behaviors/Verbalizations/Mental Status: []Pt alert and oriented, neatly dressed and groomed. Eye contact good. Motor activity appropriate. Speech within normal limits. Affect congruent, mood depressed. Thoughts linear, logical, no signs of hallucinations or delusions. Client Response/Progress/Benefit: [] Pt responded well to session, attentive and engaged in group discussions and activity. Actively engaged in continued discussion about up activities and down activities. Active participant as group discussed values and the benefits that knowing one's values can have on one's mental health. Pt completed worksheet on values and set a goal to spend more time with family by calling her dad after group today and by having a [employer]. Benefited from increased awareness of their personal values and how incorporating their values into behavioral activation goals can positively impact mental health. Will continue in IOP to reduce negative thinking patterns, improve self-confidence, and improve daily functioning. Narrative Note: []
--- NOTE | 2024-12-23 09:00 | BH.SGPN.GN ---
Behaviors/Verbalizations/Mental Status: [] Eye contact is good. Motor activity is appropriate. Appearance is casual. Speech is Appropriate. Mood is depressed and irritable. Affect is congurent. Thoughts are linear and logical. No evidence of psychosis. Reviewed daily check in sheet and no reports of suicidal ideations or intent. Client Response/Progress/Benefit: [] Pt participated at times during the group discussions. Attentive. Daily symptom tracker notes 4/5 for agitation and anxiety. I 'm trying to combat negative thoughts. Believes that she has had some success however this continues to be challenging. Group provided some suggestions such as starting a thought log. Group also encouraged pt to continue despite struggles as just by increasing awareness of thoughts and cognitive distortions can positively impact mental health. States I haven't had any rage recently. Working on not catastrophizing thoughts. Progress noted. Benefited from group support, encouragement, and feedback. Will continue in IOP to prevent decompensation/re-admission to psych, maintain safety, and improve functioning to return to work. Narrative Note: []
--- NOTE | 2024-12-23 10:10 | BH.SGPN.GN ---
Behaviors/Verbalizations/Mental Status: []Eye contact is good. Alert and oriented. Motor activity is appropriate. Appearance is casual. grooming is appropriate. Speech is Appropriate. Mood is anxious and dysthymic. Affect is congruent. Thoughts are linear and logical. No evidence of psychosis or hallucinations. Client Response/Progress/Benefit: [] Pt was an active participate AEB listening attentively to others and contributing during group discussions, participating in activity, and taking notes throughout. Attentive and provided input as the group identified ways we can hurt others or sabotage self by not regulating our emotions. Participated with peers to identify ways emotions impact communication. Provided an example of lashing out verbally when anger is unmanaged. Participated during group activity. Pt benefited from session by gaining an increased understanding on the importance of managing emotions to improve daily functioning. Will continue IOP tx to promote use of healthy coping skills, reduce negative thinking patterns, and improve mood stability. ? Narrative Note: []
--- NOTE | 2024-12-23 11:05 | BH.SGPN.GN ---
Behaviors/Verbalizations/Mental Status: []Pt alert and oriented, casually dressed and appropriately groomed. Eye contact good. Motor activity appropriate. Speech within normal limits. Affect congruent, mood depressed. Thoughts linear, logical, no signs of hallucinations or delusions. Client Response/Progress/Benefit: [] Pt engaged in session AEB Pt listening attentively to peers and providing input. Attentive during psychoeducation on 4 zones of regulation. Pt able to identify feelings and behaviors for each zone. Pt identified coping skills one can use to support self in each zone. Pt reported feeling in the red and yellow zones today because pt feels ?irritated and anxious.? Pt stated coping skills pt wants to practice in each zone include: goal setting, positive self-talk, and opposite action. Pt reported she could benefit from T.I.P.P and challenging distortions. Benefited from increased education on zones of regulation or stages of alertness for emotions and healthy coping skills to use for each zone. Will continue IOP tx to improve self-compassion, reduce avoidance, and increase distress tolerance skills. Narrative Note: []
--- NOTE | 2024-12-25 09:00 | BH.SGPN.GN ---
Behaviors/Verbalizations/Mental Status: []Pt alert and oriented, neatly dressed and groomed. Eye contact good. Motor activity appropriate. Speech within normal limits. Affect flat, mood depressed. Thoughts linear, logical, no signs of hallucinations or delusions. Reviewed pt?s symptom tracker, no risk for suicidal ideation, plan, or intent 12/25/24 Client Response/Progress/Benefit: []Pt was an active participant in group discussions. Attentive. Able to identify mental health wins including getting to IOP even though she almost canceled and being willing to talk to her therapist today. Pt's stressor today is she has been struggling with having some progress, but then having setbacks which makes pt feel like I'm not making any progress. Pt stated she is feeling down this morning and shared feeling frustrated with the roller coaster that is pt's mental health. Pt receptive to feedback from peers which pt reported was helpful. Progress noted. Benefited from group support, encouragement, and feedback. Will continue in IOP to prevent decompensation, gain healthy coping skills, and reduce negative thinking patterns. Narrative Note: []
--- NOTE | 2024-12-25 10:10 | BH.SGPN.GN ---
Behaviors/Verbalizations/Mental Status: []Pt alert and oriented, casually dressed and groomed. Eye contact good. Motor activity appropriate. Speech within normal limits. Affect congruent, mood depressed and anxious. Thoughts linear, logical, no signs of hallucinations or delusions. Client Response/Progress/Benefit: [] Pt took notes and contributed to group discussions. Attentive during psychoeducation on growth mindset. Participated during the activity. Interactive group discussion on growth mindset in which group verbalized their current fixed mindsets and how they affect their mental health. Pt shared common fixed mindset thoughts they have. These thoughts lead to feeling and staying stuck, avoiding things in her house, and self-criticism. Pt stated they have personally struggled with fixed thoughts causing them to create continued conflict. Pt benefited from increased awareness of growth mindset and fixed thoughts and how fixed thoughts impact their mental health. Will continue IOP tx to prevent decompensation, improve daily functioning, and promote mood stability. Narrative Note: []
--- NOTE | 2024-12-25 11:10 | BH.SGPN.GN ---
Behaviors/Verbalizations/Mental Status: []Pt alert and oriented, casually dressed and groomed. Eye contact good. Motor activity appropriate. Speech within normal limits. Affect congruent, mood euthymic. Thoughts linear, logical, no signs of hallucinations or delusions. Client Response/Progress/Benefit: []Pt was an active participant during activity and discussion. Pt did well to remain attentive and participate as group worked on identifying characteristics and benefits of adopting a growth mindset. Worked with fellow participants in reframing the example fixed thoughts into growth mindset thoughts. Pt worked on changing own fixed thought and reframed fixed thought to a growth perspective. Pt stated would like to work on dialectical thinking and self-compassion. Pt appeared to benefit from challenging own thoughts and engaging in the activity. Pt will continue IOP tx to improve confidence, challenge distortions, and prevent decompensation.
--- NOTE | 2024-12-25 12:10 | PCM.BH.PN ---
Progress Note Progress Note: History of Present Illness/Interim History: The patient is a 39-year-old female with a history of depression and alcohol use disorder (sober x 13 and half months) who is seen in follow-up at the [facility] behavioral health IOP. The patient had been admitted at [facility] and discharged November 13, 2024 for suicidal ideation during argument with her . I last saw the patient 2 weeks ago and result he was added. The patient is tolerating the resulting well and feels somewhat better with less depression and less anxiety. However, the patient is still having panic attacks 3 times a week. The prazosin has resolved her nightmares. She remains sober from all alcohol use. She denies passive thoughts of , suicidal ideation, homicidal ideation, plan for suicide, hallucinations, delusions. Current Psychiatric Medications: [] Resulting 0.5 mg p.o. daily (x 2 weeks); prazosin 1 mg p.o. nightly (x 2 weeks); Lexapro 20 mg p.o. daily; trazodone 100 mg to 200 mg p.o. nightly; BuSpar 20 mg p.o. 3 times a day; Klonopin 0.5 mg now decreased to once a day only. Abilify was discontinued a month ago due to side effects. Mental Status Examination: [] The patient is a 39-year-old female who appears normal for stated age and is slender and seen wearing glasses with 1 piercing to her lip. She has no psychomotor agitation or retardation and is ambulatory with a normal gait. Eye contact is good and speech is normal rate and rhythm and fluent with no pressure. Mood is anxious and depressed. Affect is mildly constricted. Thought process is goal-directed and organized. Thought content: There is no evidence of passive thoughts of , suicidal ideation, homicidal ideation, hallucinations or delusions. Reality testing is intact. Judgment is intact. Insight is fair. Impulsivity is high. Diagnoses: [] 1. Major depressive disorder, recurrent, severe without psychosis 2. Panic disorder 3. Generalized anxiety disorder 4. Acute stress disorder possibly leading to PTSD 5. Strong cluster B traits 6. Primary support issues Plan: [] The patient will continue the IOP in behavioral health at [facility] as the structure, support, education and group therapy will hopefully prevent worsening of the patient's symptoms which could require rehospitalization. She felt safe during the interview and if it anytime she does not feel safe she agrees to let us know or go to the emergency room. The risk, options, possible complications and side effects of the medications were again discussed with the patient and she understands accepts these. Patient agrees to increase resulted to 1 mg p.o. daily. No other changes were made. She will stay sober from all alcohol and she will continue to follow-up with her outpatient providers. I will see the patient in follow-up in 2 to 3 weeks.
--- NOTE | 2024-12-25 13:12 | BH.MDN ---
Multi-Disciplinary Note Note 30-min Individual: Time Started:: 12:08 Date: 12/25/24 Purpose of session/treatment goals addressed:: Purpose of session was to address goals 1 and 2 from [facility]. Eye Contact:: Fair Motor Activity:: Appropriate Appearance:: Casual Speech:: Appropriate Mood:: Anxious and Depressed Affect:: Constricted Thoughts:: Linear, Logical and No evidence of hallucinations/delusions noted Staff Interventions:: thought challenging, CBT techniques, discharge planning, strengths perspective, goal setting and taught coping skills Client Response:: Client reported she has been struggling since Monday. Client shared she feels like she is on an emotional roller coaster. Client stated she will have about 4 days in which she feels content and has less anxiety. Client reported she will than have 3 days of feeling low and higher anxiety. Client stated when she is in her times of feeling down and depressed she is low and she tends to create arguments with her because he pays attention to her more when she is angry with him versus when she is crying. Therapist work with client to explore her functional behavior behind the lie of starting an argument with her . Client stated she thinks it is because when she is crying he does not say anything I do anything to be supportive or helpful but if she starts an argument with him then he will defend himself and pay attention to her. Client reported she does not ask him for support when she send sad because she is anxious he will provide which she asked for and does not think she could handle that rejection. Through processing and discussion client stated she does not really have any evidence to support that he would reject their and realizes that she is setting herself up and him not by making assumptions with no facts. Client reported she has moments throughout the week in which she wants to work on their marriage and make it better and moments in which she just wants to end the marriage. Client stated she is waiting to hear back from the counseling agency she submitted intake paperwork for to establish with a couples counselor. Client reported she believes in order for her to be able to make a decision she needs her to be more open about what led up to his affair and provide certain details. Client reported the information he gives her will help her decide if she can move forward with him or if she won't be able to forgive him and needs to end it. Client stated throughout the program she has started to Risks/Concerns:: Client denies suicidal thoughts, plan, or intention to date. future oriented. Time Stopped:: 12:41
--- NOTE | 2024-12-27 09:00 | BH.SGPN.GN ---
Behaviors/Verbalizations/Mental Status: [] Eye contact is good. Motor activity is appropriate. Appearance is casual. Speech is Appropriate. Mood is anxious and depressed. Affect is congruent. Thoughts are linear and logical. No evidence of psychosis. Reviewed daily check in sheet and no reports of suicidal ideations or intent. Client Response/Progress/Benefit: [] Pt was an active participant in group discussion. Attentive. Daily symptom tracker notes 2/5 for depression, 3/5 for anxiety, and 3/5 for agitation which indicates some improvement for pt. Shared with the group mental health wins including getting out of the house and coming to group today despite not wanting to . Described use of opposite action and reminding herself of the benefits for her mental health in doing so. Shared an additional win as making an effort to purchase something she thought was meaningful for her for Awa's day; however, the was also a stressor as he had not been appreciative. Did well to challenge negative thoughts and remind herself she cannot control his response. Identified plans to focus on self-care today as a result. Progress noted. Benefited from group support, encouragement, and feedback. Will continue in IOP to prevent decompensation, increase healthy coping, and improve self-confidence. Narrative Note: []
--- NOTE | 2024-12-27 10:10 | BH.SGPN.GN ---
Behaviors/Verbalizations/Mental Status: []Pt alert and oriented, casually dressed and groomed. Eye contact good. Motor activity appropriate. Speech within normal limits. Affect congruent, mood anxious.. Thoughts linear, logical, no signs of hallucinations or delusions. Client Response/Progress/Benefit: [] Pt participated during small group discussions. Attentive during psychoeducation about defense mechanisms. Showed engagement during small group discussions and helped group identify which defense mechanisms were maladaptive, adaptive, or ?somewhere in the kc.? Pt worked with small group on identifying how each defense mechanism can impact mental health and gave examples. ?Seemed to benefit from gaining awareness about the different defense mechanisms. Pt to continue IOP tx to prevent decompensation, improve daily functioning, and reduce avoidance. Narrative Note: []
--- NOTE | 2024-12-27 11:10 | BH.SGPN.GN ---
Behaviors/Verbalizations/Mental Status: []Pt alert and oriented, casually dressed and groomed. Eye contact good. Motor activity appropriate. Speech within normal limits. Affect congruent, mood anxious. Thoughts linear, logical, no signs of hallucinations or delusions. Client Response/Progress/Benefit: []Pt responded well to session, participating in activity and small group discussion. Group reviewed the rest of the defense mechanisms and discussed how these are adaptive, maladaptive, or somewhere in the kc. Pt's defense mechanisms included anticipation, rationalization, displacement, and suppression. Pt connected negative impact defense mechanisms have on her mental health progress. Pt listened to crop or grain farmer teach different skills to help pt?s cope with or change their defense mechanisms. Pt appeared to benefit from gaining insight to the different defense mechanisms and learning coping skills. Pt will continue IOP tx to decrease anxious avoidance, challenge distortions, and prevent decompensation.
--- NOTE | 2024-12-30 09:00 | BH.SGPN.GN ---
Behaviors/Verbalizations/Mental Status: [] Eye contact is poor. Motor activity is appropriate. Appearance is casual. Speech is Appropriate. Mood is anxious. Affect is congruent. Thoughts are linear and logical. No evidence of psychosis. Reviewed daily check in sheet and no reports of suicidal ideations or intent Client Response/Progress/Benefit: [] Pt participated at times during the group discussion. Attentive. Daily symptom tracker notes 12/18 for anxiety and agitation. I found a new hobby. Pt had goals to follow through with independent self-care this weekend. She spend time driving by herself and picked up supplies to begin a new hobby. This was a mental health win for a variety of reasons however pt states that she needs to be able to be alone with herself and not rely on others. Overall she was productive this weekend and appears to have enjoyed focusing on herself through self-care. Emotion for today is content. Progress noted. Benefited from group support, encouragement, and feedback. Will continue in IOP to maintain safety, prevent decompensation/re-admission to psychy, and to improve functioning to return to work. Narrative Note: []
--- NOTE | 2024-12-30 10:10 | BH.SGPN.GN ---
Behaviors/Verbalizations/Mental Status: []Eye contact is fair. Motor activity is appropriate. Appearance is casual. Speech is Appropriate. Mood is content. Affect is congruent. Thoughts are linear and logical. No evidence of psychosis. Client Response/Progress/Benefit: [] Pt was an active participant in group discussions. Attentive during psychoeducation. Contributed during interactive discussions in which peers attempted to define crisis. Group identified crisis examples. Group also worked together to identify warning signs and unhealthy responses to crisis which included shutting down, isolation, avoidance, over-thinking, disordered eating, and self-harm. Pt identified top 3 warning signs as: irritability, lashing out, and loss of interest. Benefited from increased understanding of crisis and awareness of personal responses to crisis. Pt will continue IOP tx to promote mood stability, increase distress tolerance, and improve self-confidence. Narrative Note: []
--- NOTE | 2024-12-30 11:10 | BH.SGPN.GN ---
Behaviors/Verbalizations/Mental Status: []Pt alert and oriented, appropriate grooming/appearance. Eye contact good. Motor activity appropriate. Speech within normal limits. Affect congruent, mood euthymic. Thoughts linear, logical, no signs of hallucinations or delusions. Client Response/Progress/Benefit: []Pt was an active participant in group discussions. Attentive during psychoeducation. In small group pt along with peers developed an active plan for their crisis warning signs. Pt identified three crisis warning signs as well as an action plan for each. One crisis warning sign was irritability. Pt identified strategies to help with this such as: removing self from situation, breathing skills, 5 senses, working out, and daily guided meditation.?Benefited from increased awareness of crisis warning signs and by developing crisis intervention strategies. Will continue in IOP to promote use of healthy coping, continue building confidence, and prevent decompensation.
--- NOTE | 2024-12-31 09:00 | BH.SGPN.GN ---
Behaviors/Verbalizations/Mental Status: []Pt alert and oriented, neatly dressed and groomed. Eye contact good. Motor activity appropriate. Speech within normal limits. Affect congruent, mood euthymic and tired. Thoughts linear, logical, no signs of hallucinations or delusions. Reviewed pt?s symptom tracker, no risk for suicidal ideation, plan, or intent 12/31/24. Client Response/Progress/Benefit: [] Pt was an active participant in group discussions. Attentive. Able to identify mental health wins including getting here despite being tired and learning new crafting skills. ?Pt's stressor today is she accidently took one of her sleeping pills this morning, so she is feeling ?groggy? and her dad is having surgery this week. Pt stated pt is feeling ?tired this morning. Pt receptive to feedback from peers which pt reported was helpful. Progress noted. Benefited from group support, encouragement, and feedback. Will continue in IOP to reinforce healthy coping skills, reduce avoidance behaviors, and improve self-confidence. Narrative Note: []
--- NOTE | 2024-12-31 10:10 | BH.SGPN.GN ---
Behaviors/Verbalizations/Mental Status: [] Eye contact is good. Motor activity is appropriate. Appearance is casual. Speech within normal limits. Mood is dysthymic. Affect is congruent. Thoughts are linear and logical. No evidence of psychosis. Client Response/Progress/Benefit: [] Client was an active participant in group discussion and experiential activity. Attentive during psychoeducation on resilience. Participated in interactive discussion with peers on the definition of resilience. Group identified factors that impact resiliency which include; current mood, stress level, health, pain levels, sleep, and environment. Group also worked together to identify the benefits of being resilient and how it is related to mental health. Group believes resilience can increase adaptability, keep one moving towards goals, improve self-care, improve relationships, and decrease stress. Able to relate experiential activity of group juggle to topics of resilience. Benefited from increased awareness of resilience and the factors that contribute to building resilience. Will continue in IOP to prevent decompensation/re-admission to psych unit, increase healthy coping skills, and improve functioning to return to work. Narrative Note: []
--- NOTE | 2024-12-31 11:10 | BH.SGPN.GN ---
Behaviors/Verbalizations/Mental Status: [] Client alert and oriented, casually dressed and groomed. Eye contact good. Motor activity appropriate. Speech within normal limits. Affect congruent, mood dysthymic. Thoughts linear, logical, no signs of hallucinations or delusions Client Response/Progress/Benefit: [] Client responded well to session AEB completing the resilience worksheet provided. Client actively participated in the discussion and worked cooperatively with group to identify strategies to enhance each of the components discussed. Client reports belief they already use resilience trait of ?self reflection? Client discussed that they could work on accepting change is a part of living. Client seemed to benefit from discussing strategies for improving personal resilience and identifying resilience traits client already possesses. Will continue IOP tx to increase overall functioning and prevent decompensation. Narrative Note: []
--- NOTE | 2025-01-02 02:00 | BH.SGPN.GN ---
Behaviors/Verbalizations/Mental Status: [] Eye contact is good. Motor activity is appropriate. Appearance is casual. Speech is Appropriate. Mood is anxious. Affect is congruent. Thoughts are linear and logical. No evidence of psychosis. Reviewed daily check in sheet and no reports of suicidal ideations or intent. Client Response/Progress/Benefit: [] Pt was an active participant in group discussions. Attentive. Did well to identify 2 mental health wins including being able to visit her father who has been ill on Monday. Identified use of positive self-talk. Additional win noted as allowing herself to be tired and rest yesterday without it turning into unhealthy coping. Current stressor noted as struggling with anxiety related to her father's upcoming lung surgery tomorrow. Benefited from group support, encouragement, and feedback. Will continue in IOP to prevent decompensation, promote mood stability, and increase consistent use of healthy coping. Narrative Note: []
--- NOTE | 2025-01-02 10:10 | BH.SGPN.GN ---
Behaviors/Verbalizations/Mental Status: [] Pt alert and oriented, casually dressed and groomed. Eye contact good. Motor activity appropriate. Speech within normal limits. Mood: anxious. Affect: congruent. Thoughts linear, logical, no signs of hallucinations or delusions. Client Response/Progress/Benefit: [] Pt participated at times during the group discussions. Attentive during psychoeducation on self-sabotage and its impact on mental health. Attentive as peers worked together to define self-sabotage. Worked with peers to provide examples of the eight types of self-sabotage (procrastination, self-medicating, unrealistic expectations, people-pleasing, and poor boundaries). Worked with peers to identify reasons for self-sabotage behaviors (feels comfortable, can distract,perceived control, fear of success, and a type of self-protection). Seemed to benefit from gaining awareness about the self-sabotage. Pt to continue IOP tx to prevent decompensation/re-admission to psych unit, stabilize mood, increase healthy coping, and improve functioning to return to work. Narrative Note: []
--- NOTE | 2025-01-02 11:10 | BH.SGPN.GN ---
Behaviors/Verbalizations/Mental Status: []Pt alert and oriented, casually dressed and groomed. Eye contact good. Motor activity appropriate. Speech within normal limits. Affect congruent, mood euthymic. Thoughts linear, logical, no signs of hallucinations or delusions. Client Response/Progress/Benefit: []Pt responded well to session, attentive and providing input. Pt worked on her mental health wellness garden picture and discussed things that contribute to mental wellness in his life. With peers, pt discussed things that would sabotage one's mental health wellness and added it to the garden metaphor. Pt identified things pt personally does to sabotage as perfectionism, poor communication, and bringing up the past. Pt attentive during psychoeducation on ways to reduce self-sabotage. Pt identified a skill to work on to decrease sabotaging behaviors. Pt appeared to benefit from learning skills and gaining awareness of self-sabotaging behaviors. Pt will continue IOP tx to promote use of healthy coping skills, challenge negative/distorted thoughts, and prevent decompensation.
--- NOTE | 2025-01-06 09:05 | BH.SGPN.GN ---
Behaviors/Verbalizations/Mental Status: [] Eye contact is good. Motor activity is appropriate. Appearance is casual. Speech is Appropriate. Mood is depressed. Affect is congruent. Thoughts are linear and logical. No evidence of psychosis. Reviewed daily check in sheet and no reports of suicidal ideations or intent. Client Response/Progress/Benefit: [] Pt participated when prompted. Attentive. Daily symptom tracker notes 2/5 for anxiety and irritability. Struggling over the weekend. Reports feeling tired. Her father is ill and is undergoing surgery. She has spent several hours a day visiting with her father and caring for his house while he is away. This has increased stress. Group was supportive which was beneficial. Slight regression due to psychosocial stressors. Will continue in IOP to maintain safety, prevent decompensation/re-admission, and improve functioning to return to work. Narrative Note: []
--- NOTE | 2025-01-06 10:10 | BH.SGPN.GN ---
Behaviors/Verbalizations/Mental Status: []Patient was alert and oriented, casually dressed and groomed. Eye contact good. motor activity appropriate. speech within normal limits. Affect congruent, mood engaged. Thoughts linear, logical, no signs of hallucinations or delusion. Client Response/Progress/Benefit: [] Pt participated in the group discussions AEB providing input, nodding and taking notes. Attentive during psychoeducation Goal Setting. Participated during the discussion on common barriers. Pt stated personal barriers to accomplishing goals include lack of motivation, fear of failure, and change in life. Group also identified benefits of goals as sense of purpose, improved self-confidence, more motivation for other goals, sense of accomplishment, and improved mental health. Pt identified personal benefits to goal setting. Benefited from increased awareness of mental health benefits of goals as well as psychoeducation on SMART goal criteria. Will continue in IOP to promote mood stability, reduce negative thinking patterns, and increase self-confidence. Narrative Note: []
--- NOTE | 2025-01-06 11:10 | BH.SGPN.GN ---
Behaviors/Verbalizations/Mental Status: [] Pt alert and oriented. Appearance is casual. Eye contact good. Motor activity appropriate. Speech within normal limits. Affect is dysthymic. Mood is congruent. Thoughts linear, logical, no signs of hallucinations or delusions. Client Response/Progress/Benefit: [] Pt was engaged during discussion and experiential activity. Completed the worksheet challenging them to develop a personal SMART goal. Pt chose a SMART goal to learn embroidery basics within 2 weeks by committing to 4 hours of practice per week. Believes this goal will benefit them being through self-care and believing I can accomplish something. Identified obstacles such as lack of motivation, fear of failure, and changes in life..Benefited from this group by developing a short-term SMART goal related to mental health. Will continue IOP to prevent decompensation/re-admission to psych unit, increase healthy coping, and improve functioning to return to work. Narrative Note: []
--- NOTE | 2025-01-07 09:00 | BH.SGPN.GN ---
Behaviors/Verbalizations/Mental Status: []Pt alert and oriented, casually dressed and groomed. Eye contact good. Motor activity appropriate. Speech within normal limits. Affect congruent, mood sad. Thoughts linear, logical, no signs of hallucinations or delusions. Reviewed pt?s symptom tracker, no risk for suicidal ideation, plan, or intent /. Client Response/Progress/Benefit: [] Pt was an active participant in group discussions. Attentive. Able to identify mental health wins including challenging negative thoughts more consistently and getting to see her dad yesterday. Pt's stressor today is ?I feel stuck in two emotions with my relationship and my dad?s health is stressing me out.? Pt stated pt is feeling disappointed? this morning. Pt receptive to feedback from peers which pt reported was helpful. Progress noted. Benefited from group support, encouragement, and feedback. Will continue in IOP tx to promote mood stability, increase resilience, and improve daily functioning. ?? Narrative Note: []
--- NOTE | 2025-01-07 10:10 | BH.SGPN.GN ---
Behaviors/Verbalizations/Mental Status: [] Eye contact is good. Motor activity is appropriate. Appearance is casual. Speech is Appropriate. Mood is anxious and depressed. Affect is congruent. Thoughts are linear and logical. No evidence of psychosis Client Response/Progress/Benefit: [] Pt responded well to session AEB contributing to small group discussion, taking notes, and listening attentively to others. Group defined anger and discussed the benefits of managed anger and anger as a secondary emotion. Group shared perspective on benefits of anger as advocating for self and getting needs met, a means to internal change, as well as a catalyst for change. Pt engaged in group discussion on common triggers for anger. Identified feeling lied to or ignored as an anger trigger. Appeared to benefit from increased knowledge of the anger cycle as well as personal triggers. Will continue IOP to increase healthy coping, prevent decompensation, and improve functioning. Narrative Note: []
--- NOTE | 2025-01-07 11:10 | BH.SGPN.GN ---
Behaviors/Verbalizations/Mental Status: []Client alert and oriented, casually dressed and groomed. Eye contact fair. Motor activity appropriate. Speech within normal limits. Affect congruent, mood anxious. Thoughts linear, logical, no signs of hallucinations or delusions. Client Response/Progress/Benefit: []Pt was engaged throughout AEB contributing to group discussion and activity. Group processed how they each responded to the intentionally difficult task they were asked to completed and described the physical and emotional anger cues experienced throughout, as well as strategies used for managing these frustrations. Pt contributed as group brainstormed healthy coping skills for better managing anger which included: music, walking/exercise, taking a break, healthy venting, avoiding unnecessary stressors, reflection, and journaling. Pt cooperative with working in small groups to identify what strategy wants to work on to help interrupt personal anger cycle. Pt shared she learned today it's okay to feel anger, just don't live in it. Pt to continue IOP to increase consistent use of healthy coping skills, improve view of self, and prevent decompensation.
--- NOTE | 2025-01-07 11:21 | PCM.BH.PN ---
Progress Note Progress Note: History of Present Illness/Interim History: The patient is a 39-year-old female with a history of depression and alcohol use disorder (sober x 15 months) who is seen in follow-up at the [facility] behavioral health [facility]. She was admitted to [facility] psychiatric unit and discharged November 13, 2024 for suicidal ideation during an argument with her . I last saw the patient 2 weeks ago and the resulting dose was increased to 1 mg daily. She is tolerating the resulting well. She feels she is benefiting from the IOP and learning valuable skills to deal with her mental health issues. She still has sadness which are more like waves of sadness daily to twice a week. Her sleep is improved to over 6 hours a night. Her panic attacks are lessening to maybe once a week or less. She remains sober from all alcohol use. She denies passive thoughts of , suicidal ideation, homicidal ideation, plan for suicide, hallucinations or delusions. Current Psychiatric Medications: [] Resulting 1 mg total daily (x 2 weeks); prazosin 1 mg p.o. nightly; Lexapro 20 mg p.o. daily (dose increased 1 month ago); trazodone 100 to 200 mg p.o. nightly; BuSpar 20 mg p.o. 3 times a day; Klonopin 0.5 mg daily only now. Mental Status Examination: [] The patient is a 39-year-old female who appears normal for stated age and is slender and wearing glasses with 1 lip piercing. She is ambulatory with a normal gait and has no psychomotor agitation or retardation. Speech is normal rate and rhythm and fluent with no pressure. Eye contact is good. Mood is depressed. Affect is mildly constricted. Thought process is goal-directed and organized. Thought content: Patient feels she is improving. There is no evidence of passive thoughts of , suicidal ideation, homicidal ideation, hallucinations or delusions. Reality testing is intact. Judgment is intact. Insight is fair and improving. Impulsivity is high. Diagnoses: [] 1. Major depressive disorder, recurrent, moderate 2. Panic disorder 3. Generalized anxiety disorder 4. Acute stress disorder 5. Strong cluster B traits 6. Alcohol use disorder (sober x 15 months) 7. Primary support issues Plan: [] The patient will continue the IOP and behavioral health at [facility] as the structure, support, education and group therapy will hopefully prevent worsening of the patient's symptoms. The risk, options and possible complications and side effects of the medications were again discussed with the patient and she understands and accepts these. No other medication changes were made today as they were recently changed. She will stay sober from all alcohol and drug use. She will continue to follow-up with her outpatient providers and I will see the patient in follow-up in several weeks.
--- NOTE | 2025-01-08 09:05 | BH.SGPN.GN ---
Behaviors/Verbalizations/Mental Status: [] Eye contact is good. Motor activity is appropriate. Appearance is casual. Speech is Appropriate. Mood is depressed. Affect is congruent. Thoughts are linear and logical. No evidence of psychosis. Reviewed daily check in sheet and no reports of suicidal ideations or intent. Client Response/Progress/Benefit: [] Pt participated when prompted. Attentive. Daily symptom tracker notes 4/5 for anxiety and 3/5 for depression. She reports being exhausted due in large part to extensive driving and emotional impact her her father's recent hospitalization. Significant driving and additional responsibilities as well as emotions related to father's distress has impacted her overall progress. Limited progress noted . Benefited from group support, encouragement, and feedback. Will continue in IOP to prevent decompensation/re-admission to psych unit, stabilize mood, and improve functioning to return to work. Narrative Note: []
--- NOTE | 2025-01-08 10:15 | BH.SGPN.GN ---
Behaviors/Verbalizations/Mental Status: []Client alert and oriented, casually dressed and groomed. Eye contact good. Motor activity appropriate. Speech within normal limits. Affect congruent, mood euthymic, Thoughts linear, logical, no signs of hallucinations or delusions Client Response/Progress/Benefit: [] pt responded well to session, contributing to discussion and engaged during the activity. Group identified the benefits of change which included: personal growth, increased confidence, improving mental health, progressing, and becoming resilient. Worked with the group to identify barriers to change and pt identified personal barriers as time, current job, and finances. pt participated along with group in activity where they discussed the emotions related to change. Benefited from increased awareness and understanding of emotions, benefits, and barriers related to change. Will continue IOP tx to promote mood stability, reduce negative thinking patterns, and increase self-confidence. Narrative Note: []
--- NOTE | 2025-01-08 11:15 | BH.SGPN.GN ---
Behaviors/Verbalizations/Mental Status: []Client alert and oriented, neatly dressed and groomed. Eye contact good. Motor activity appropriate. Speech within normal limits. Affect congruent, mood depressed and anxious. Thoughts linear, logical, no signs of hallucinations or delusions. Client Response/Progress/Benefit: [] Pt responded well to session, attentive throughout. Did well to actively listen and contributed when prompted as group worked to review change process. Pt worked with group to relate the strategies used to overcome barriers in the various stages of change and common emotions throughout. Pt identified a change they would like to make is ?Going to areas of the house I wouldn't usually.? Pt identified currently being in the preperation stage for this change. Pt said finding healthy distraction as one thing she can do to help pt get to the next stage. Appeared to benefit from identifying a change they want and how to progress. Pt will continue IOP tx to prevent decompensation, combat distorted thought patterns, and improve self-compassion. Narrative Note: [] Behaviors/Verbalizations/Mental Status: []Client alert and oriented, neatly dressed and groomed. Eye contact good. Motor activity appropriate. Speech within normal limits. Affect congruent, mood depressed and anxious. Thoughts linear, logical, no signs of hallucinations or delusions. Client Response/Progress/Benefit: [] Pt responded well to session, attentive throughout. Did well to actively listen and contributed when prompted as group worked to review change process. Pt worked with group to relate the strategies used to overcome barriers in the various stages of change and common emotions throughout. Pt identified a change they would like to make is ?Going to areas of the house I wouldn't usually.? Pt identified currently being in the preperation stage for this change. Pt said finding healthy distraction as one thing she can do to help pt get to the next stage. Appeared to benefit from identifying a change they want and how to progress. Pt will continue IOP tx to prevent decompensation, combat distorted thought patterns, and improve self-compassion. Narrative Note: []
== END 2025-01-10 23:59 ==
LOC: BHIOP 07:16
PROVIDERS: PCP Nurse Practitioner Family; Referring Provider Psychiatry & Neurology Psychiatry; Visit Provider Psychiatry & Neurology Psychiatry
DX: F33.1 Major depressive disorder, recurrent, moderate (principal); F41.0 Panic disorder [episodic paroxysmal anxiety]; F41.1 Generalized anxiety disorder; Z73.3 Stress, not elsewhere classified; F10.91 Alcohol use, unspecified, in remission; Z79.899 Other long term (current) drug therapy
CPT/HCPCS: S9480; 90832; 90834; 90853

== ENCOUNTER 2025-01-13 07:34 | Outpatient (RCR) | payer OTHER, SELFPAY ==
[2025-01-11 01:22] VITALS: BP 149/99; PULSE 79
--- NOTE | 2025-01-13 09:37 | BH.MDN ---
Multi-Disciplinary Note Note 30-min Individual: Time Started:: 09:08 Date: 01/13/25 Purpose of session/treatment goals addressed:: Purpose of session was to review treatment progress, complete maintenance plan, and identify aftercare plans. Eye Contact:: Good Motor Activity:: Appropriate Appearance:: Neat Speech:: Appropriate Mood:: Euthymic Affect:: Full Thoughts:: Linear, Logical and No evidence of hallucinations/delusions noted Staff Interventions:: CBT techniques, discharge planning, strengths perspective and other (completed maintenance plan) Client Response:: Client reported doing good and has been managing stress with her dad's health effectively. Client stated there was complications with her father's surgery and he had to have a second unexpected surgery this past Monday. client reported she has felt too busy with going to see her dad and take care of his animals that she hasn't had much time to worry. Client stated her dad has finally been discharged and is doing well. Client stated she has been managing her mental health throughout the difficult moments by taking a break and using her skills. Client reported she also engaged in anxiety exposure goals the past week. Client stated she went to a coffee shop for the third time that is a place that is anxiety provoking for her because it reminds her of the affair he had. Client reported she also was able to finish a movie that mentioned an affair by using self-talk to get past the moment. Client stated prior to this she had turned off every show/movie that mentioned or talked about affairs. Client reported she is trying to focus on what's within her control and decreasing her avoidance of situations that result in feeling angry or anxious. Client shared she is feeling ready for discharge from [facility] this week. Client stated she has seen significant personal growth in herself since starting. Client shared progress she has seen is decreased anxiety, decrease anger outbursts, improved confidence and worth, decreased avoidance, and improved overall functioning. 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 Client stated she realizes through the program that she has held herself back from many opportunities and feels ready to take this chance. Client worked with therapist to complete maintenance plan in which she identified triggers, warning signs, self-care activities, and healthy coping skills. Risks/Concerns:: Denies suicidal ideation, plan, or intention to date. future oriented. Progress Toward Goals/Plan:: Progress noted AEB client reporting improved ability to manage major stressor with her dad's health over the last two weeks. Client reports utilizing skill of taking a step back before responding. Client also has been engaging in anxiety exposure goals to help decrease avoidance. Client reports improved daily functioning, increased confidence, and decreased anxiety. Client has a intake appointment at [place] [id number] on 01/15/25 to get established with psychiatry, individual counseling and couples counseling. Client will inform therapist after appointment when they can get her in for individual therapy. Plan is for client to discharge from [facility] on 01/16/25. Time Stopped:: 09:35
--- NOTE | 2025-01-13 10:10 | BH.SGPN.GN ---
Behaviors/Verbalizations/Mental Status: [] Eye contact is good. Motor activity is appropriate. Appearance is casual. Speech is Appropriate. Mood is euthymic. Affect is congruent. Thoughts are linear and logical. No evidence of psychosis. Client Response/Progress/Benefit: [] Pt was an active participant in group discussions. Attentive during psychoeducation on the 4 communication styles (Passive, Passive-Aggressive, Aggressive, and Assertive) and the obstacles to effective communication. Contributed during interactive discussion on the benefits of communicating effectively. Worked well with peers to identify the benefits and disadvantages to the different communication styles. Pt believes that she is primarily passive and aggressive and gave examples of recent events. Able to identify the impact this has on relationships/family. Benefited from increased understanding of communication styles and how these can impact effective communication. Will continue in IOP to promote healthy coping, challenge distortions, and prevent decompensation.
--- NOTE | 2025-01-13 11:15 | BH.SGPN.GN ---
Behaviors/Verbalizations/Mental Status: []Pt alert and oriented, casually dressed and groomed. Eye contact good. Motor activity appropriate. Speech within normal limits. Affect congruent, mood dysthymic and anxious. Thoughts linear, logical, no signs of hallucinations or delusions. Client Response/Progress/Benefit: [] Pt responded well to session AEB Pt listening attentively to others and providing input during group discussion on the pay offs and costs of the different communication styles. Pt able to connect how current communication style impacts mental health. Connected with peers? comments about importance of using assertive communication. Pt seemed to benefit from increasing awareness of healthy strategies to improve communication and worked within small group to identify assertive communication approaches to example scenarios. Identified wanting to work on improving her confidence and maintaining a calm tone when communicating with others. Will continue IOP tx to prevent decompensation, improve mood stability, and improve daily functioning to return to work. ? Narrative Note: []
--- NOTE | 2025-01-14 09:00 | BH.SGPN.GN ---
Behaviors/Verbalizations/Mental Status: [] Eye contact is good. Motor activity is appropriate. Appearance is casual. Speech is Appropriate. Mood is anxious and content. Affect is congruent. Thoughts are linear and logical. No evidence of psychosis. Reviewed daily check in sheet and no reports of suicidal ideations or intent. Client Response/Progress/Benefit: [] Pt was an active participant in group discussions. Attentive. Did well to identify 2 mental health wins. Wins included making it a priority to actually make dinner last night despite being busy. Additional win noted as this being her last week in tx and following-through with completing the program. Stressor reported as returning to work, but did well to review skills she can use as she adjusts to being back. Receptive of and appearing to benefit from group support, encouragement, and feedback. Will continue in IOP to prevent decompensation, promote mood stability, and increase consistent use of healthy coping. Narrative Note: []
--- NOTE | 2025-01-14 10:15 | BH.SGPN.GN ---
Behaviors/Verbalizations/Mental Status: []Pt alert and oriented, casually dressed and groomed. Eye contact good. Motor activity appropriate. Speech within normal limits. Affect congruent, mood content. Thoughts linear, logical, no signs of hallucinations or delusions. Client Response/Progress/Benefit: [] Pt responded well to session, attentive and engaged. Group participated in the discussion defining stigma as well as what stigma has kept pt's from doing in their lives. Pt stated mental health stigma has led pt to struggle with setting boundaries in her life and for herself. Pt worked with peers to begin discussion of what reinforces stigma, both socially and internally, and this was discussed further in the next group. Pt appeared to benefit from learning about the different types of stigma as well as gaining awareness of how stigma has personally impacted pt. Pt will continue IOP tx to promote gains, reinforce use of healthy coping skills, and increase self-compassion. Narrative Note: []
--- NOTE | 2025-01-14 11:15 | BH.SGPN.GN ---
Behaviors/Verbalizations/Mental Status: []Pt alert and oriented, casually dressed and groomed. Eye contact good. Motor activity appropriate. Speech within normal limits. Affect congruent, mood euthymic. Thoughts linear, logical, no signs of hallucinations or delusions. Client Response/Progress/Benefit: [] Pt engaged participant AEB participating in the activity, providing input during small group discussion, and listening attentively to others. Pt appeared to connect with discussion in the benefits of addressing mental health stigma which included: improved relationships, increased willingness to seek help, increased happiness, and improved confidence. Group brainstormed strategies to combat social and perceived stigma. Pt identified that they contribute to stigma by telling herself she is too messed up and not smart enough. Pt shared one thing pt can do to combat stigma is to decrease social media usage which she noted often feeds her negative self-talk. Appeared to benefit from increasing awareness of strategies to combat stigma. Pt is to continue IOP to increase confidence, promote use of healthy coping skills, and prevent decompensation.
--- NOTE | 2025-01-16 09:05 | BH.SGPN.GN ---
Behaviors/Verbalizations/Mental Status: [] Eye contact is good. Motor activity is appropriate. Appearance is casual. Speech is Appropriate. Mood is euthymic. Affect is full. Thoughts are linear and logical. No evidence of psychosis. Reviewed daily check in sheet and no reports of suicidal ideations or intent Client Response/Progress/Benefit: [] Pt participated when prompted. Daily symptom tracker notes / for anxiety. Shared with the group that today is her last day in [facility]. Set to discharge successfully. According to pt she is proud that she ?got through the program? and ? furthered my education? on mental health. Briefly discussed her progress through [facility] after a inpatient psych admission. She is looking forward to getting back to work. Progress noted. Benefited from group support and encouragement. Will be discharged today. Narrative Note: []
--- NOTE | 2025-01-16 10:10 | BH.SGPN.GN ---
Behaviors/Verbalizations/Mental Status: []Pt alert and oriented, casually dressed and groomed. Eye contact good. Motor activity appropriate. Speech within normal limits. Affect congruent, mood euthymic and anxious. Thoughts linear, logical, no signs of hallucinations or delusions. Client Response/Progress/Benefit: [] Pt was an active?participant in group discussions and experiential activity. Worked with peers to identify benefits of healthy relationships which included; support, shared experiences, laughter, understanding, and the ability to challenge us. Group identified factors that lead to unhealthy relationships which included; fear, loneliness, low self-esteem, need to be liked, and societal expectations. Benefited from increased insight and awareness of benefits of healthy relationships and factors that contribute to unhealthy relationships. Pt is scheduled to discharge successfully from [facility] today.
--- NOTE | 2025-01-16 11:05 | BH.SGPN.GN ---
Behaviors/Verbalizations/Mental Status: [] Pt alert and oriented, casually dressed and groomed. Eye contact good. Motor activity appropriate. Speech within normal limits. Affect full, mood euthymic, Thoughts linear, logical, no signs of hallucinations or delusions. Client Response/Progress/Benefit: [] Pt responded well to session, engaged and taking notes throughout. Worked with group to connect components of the experiential activity with characteristics of healthy and unhealthy relationships. Attentive during psychoeducation about characteristics of healthy, unhealthy, and abusive relationships. Pt reported pt is better with having equality in her relationship. However, pt reported pt can work on building back and giving trust within her marriage. Appeared to benefit from identifying current healthy relationship attributes and an area Pt wants to work on to build healthier relationships. Pt to discharge from IOP tx today as pt has accomplished her tx goals and no longer meets criteria for IOP level of care. Narrative Note: []
--- NOTE | 2025-01-16 15:05 | BH.DS_ITS ---
Discharge Summary Demographics Date of Admission:: 11/25/24 Discharge Date: 01/16/25 Presenting Problems at Admission:: The patient is a 39-year-old , female with a history of depression and alcohol use disorder (sober x 13 months) who was who was referred to the [facility] behavioral health IOP after recent psychiatric admission at [facility] from November 11, 2024 to November 13, 2024 for suicidal ideation during an argument with her . Stressors include marital issues in which her had an affair in 2022 and there have been major trust issues and other issues since. Other stressors include her grandmother being in hospice, her father being recently diagnosed with lung cancer and her youngest daughter moving out of the house. She endorses low motivation, hopelessness, worthlessness, decreased concentration. Her sleep is decreased at 4 hours max and she does not take naps. Her energy level is usually exhausted but sometimes she gets very anxious and worried and has to do something to relieve herself. She admits to passive thoughts of but denies suicidal ideation, plan for suicide, homicidal ideation, hallucinations, delusions or symptoms of edie. Objectives Discharge Diagnoses:: 1. Major depressive disorder, recurrent, severe without psychosis 2. Panic disorder 3. Generalized anxiety disorder 4. Strong cluster B traits 5. Cannot rule out bipolar, NOS but seems more consistent with cluster B Diagnosis Code(s):: F33.2 Reason for Discharge:: Client has shown and reports significant treatment progress compared to when she first started IOP. Client reports improved functioning, excited to return back to work, decreased time spent thinking about the past, and improved view of self. Treatment Progress During Treatment & Response: Progress noted per DSM-5 cross cutting symptoms measure at discharge which indicates a 67% decrease in depression, 50% decrease in irritability, 50% decrease in anxiety, and overall 75% decrease in mental symptoms. Client reports overall improved mood, improved daily functioning, excitement about returning back to work, decrease hyper-focus on marital conflict, and improved view of self. Client reports improved motivation, improved energy, no passive thoughts of , improved sleep, and feeling hopeful about her future. Client has responded well to treatment as evidenced by consistent treatment tenants, application of healthy coping skills, and engagement in group sessions. Client worked hard to utilize healthy coping skills outside of treatment environment by practicing the skills and engaging in anxiety exposure goals. Issues Still to be Addressed:: Client could benefit from couples counseling to work through marital conflict. Client could also benefit from individual counseling to continue building her confidence, challenging distortions, and focusing on what is within her control. Discharge Recommendations/Instructions:: Client has initial appointment at [place] [id number] on 01/15/25 to get established with psychiatry, individual counseling and couples counseling. Client to follow up with [place] [id number] for continued mental health care. Discharge Handout
== END 2025-01-16 14:28 | disposition home or self-care (01) ==
LOC: BHIOP 07:34
PROVIDERS: PCP Nurse Practitioner Family; Referring Provider Psychiatry & Neurology Psychiatry; Visit Provider Psychiatry & Neurology Psychiatry
DX: F32.2 Major depressive disorder, single episode, severe without psychotic features (principal); F41.0 Panic disorder [episodic paroxysmal anxiety]; F41.1 Generalized anxiety disorder
CPT/HCPCS: S9480; 90832; 90853